=== PATIENT | female | born 1945 | race Caucasian/White ===

== ENCOUNTER 2017-05-02 09:10 | Inpatient (IN) ==
[2017-05-02] MEDS ORDERED: IPRATROPIUM/ALBUTEROL 3 ML AMPUL.NEB NEB ONE ×2 (09:32)
[2017-05-02] MEDS ORDERED: LACTATED RINGERS 1,000 ML IV ONE (09:32)
[2017-05-02] MEDS ORDERED: ONDANSETRON 4 MG/2 ML VIAL IV ONE (09:32)
--- NOTE | 2017-05-02 09:34 | Emergency Department Note ---
General Adult HPI - General Chief complaint: Extremity Injury, Lower Stated complaint: right hip pain Time Seen by Provider: 05/02/17 09:22 Source: patient Mode of arrival: ambulatory Limitations: no limitations - History of Present Illness HPI Narrative: This patient presents with 2 problems. She has had flulike symptoms for the last several days since Sunday but also has symptoms of right-sided sciatica. Her O2 saturation was a little bit low in the 80s and she has been coughing and wheezing some. She has no history of COPD or asthma. She has had some nausea and vomiting today. In general feels poorly and achy like she has the flu. - Related Data Home Medications Medication Instructions Recorded Confirmed HYDROcodone/ACETAMINOPHEN 1 each PO QIDP 08/02/16 05/02/17 [Hydrocodon-Acetaminophn 10-325] aspirin 81 mg chewable tablet 81 mg PO QDAY 11/09/16 05/02/17 atorvastatin 80 mg tablet 80 mg PO QDAY 11/09/16 05/02/17 hydroxyzine HCl 25 mg tablet 25 mg PO TID-QID PRN 11/09/16 05/02/17 pantoprazole 40 mg tablet,delayed 40 mg PO QDAY 11/09/16 05/02/17 release potassium chloride ER 10 mEq 10 meq PO QDAY 11/09/16 05/02/17 tablet,extended release torsemide 10 mg tablet 10 mg PO QDAY 11/09/16 05/02/17 zolpidem 10 mg tablet 5 - 10 mg PO HS 11/09/16 05/02/17 Albuterol Sulfate [Proair Hfa] 8.5 gm IH Q4HP PRN 05/02/17 05/02/17 Atenolol [Tenormin] 25 mg PO DAILY 05/02/17 05/02/17 Atorvastatin [Lipitor] 80 mg PO DAILY 05/02/17 05/02/17 Lisinopril [Zestril] 20 mg PO BID 05/02/17 05/02/17 traZODone HCL [Trazodone HCl] 50 - 100 mg PO HSP PRN 05/02/17 05/02/17 Allergies Allergy/AdvReac Type Severity Reaction Status Date / Time No Known Drug Intolerances Allergy Unknown Other Verified 05/02/17 09:16 Review of Systems All systems ED: reviewed and negative except as stated. Past Medical History - Past Medical History Medical history: Reports: GERD, hypertension, other (insomnia, chronic pain, GERD) - Social History smoking status: Current every day smoker Physical Exam Limitations: no limitations General appearance: alert Head: atraumatic Eye: Present: normal appearance ENT: normal exam Neck: Present: normal inspection Chest: Present: normal inspection Respiratory: Present: wheezes Cardiovascular: Present: regular rate, normal rhythm, normal heart sounds Abdominal: Present: soft. Absent: distention, tenderness Back: Present: tenderness, paraspinal tenderness, straight leg raise (R) Neurological: Present: alert Psychiatric: Present: normal affect, normal mood Skin: Present: warm, dry, intact Course Vital Signs Temperature 98.7 F 05/02/17 09:10 Pulse Rate 69 05/02/17 09:10 Respiratory Rate 18 05/02/17 09:10 Blood Pressure 192/72 05/02/17 09:10 Pulse Oximetry (%) 88 L 05/02/17 09:10 Temperature 98.7 F 05/02/17 09:10 Pulse Rate 62 05/02/17 11:01 Respiratory Rate 12 05/02/17 11:01 Blood Pressure 179/60 05/02/17 11:01 Pulse Oximetry (%) 97 05/02/17 11:01 Medical Decision Making - [facility] Narrative Medical decision making narrative: Patient's chest x-ray shows a peribronchiolar infiltrate and urine dip was quite positive for infection. Her O2 saturations are in the 80s off oxygen. We will go ahead and admit her to the hospital. - Lab Data Lab results reviewed: Yes I reviewed the patient's lab results. Result diagrams: 05/02/17 09:51 05/02/17 09:50 Lab Results 05/02/17 05/02/17 Range/Units 09:50 09:51 WBC 11.0 (4.5-11.0) K/mcL RBC 4.50 (4.00-5.20) M/mcL Hgb 15.4 H (12.0-15.0) g/dL Hct 45.8 (36.0-48.0) % MCV 101.8 H (80.0-100.0) fL MCH 34.1 H (26.0-34.0) pg MCHC 33.5 (31.0-36.0) g/dL RDW 12.8 (11.5-14.5) % Plt Count 200 (140-440) K/mcL MPV 7.6 (7.4-10.4) fL Gran % 72.6 (38.0-78.0) % Lymph % (Auto) 17.5 (15.5-49.0) % [place] % (Auto) 8.4 (1.0-12.0) % Eos % (Auto) 1.3 (0.0-7.0) % Baso % (Auto) 0.2 (0.0-2.0) % Gran # 8.0 (1.8-8.0) K/mcL Lymph # (Auto) 1.9 (1.5-4.8) K/mcL [place] # (Auto) 0.9 (0.1-0.9) K/mcL Eos # (Auto) 0.1 (0.0-0.7) K/mcL Baso # (Auto) 0 (0.0-0.3) K/mcL Sodium 141 (133-145) mmol/L Potassium 3.7 (3.3-5.1) mmol/L Chloride 100 (96-108) mmol/L Carbon Dioxide 27 (22-30) mmol/L Anion Gap 14.0 (8-16) BUN 11 (8-23) mg/dl Creatinine 0.7 (0.6-1.1) mg/dl GFR Calculation 87 Glucose 118 H (70-105) mg/dL Calcium 9.4 (8.6-10.4) mg/dl Total Bilirubin 0.6 (0.0-1.0) mg/dL AST 17 (0-37) U/l ALT 19 (0-40) U/l Alkaline Phosphatase 58 (39-117) U/L Total Protein 7.4 (5.9-8.4) gm/dL Albumin 3.9 (3.2-5.2) gm/dL Globulin 3.5 (2.2-3.7) gm/dL Albumin/Globulin Ratio 1.1 (1.0-2.3) - Radiology Data Radiology results reviewed: Yes I reviewed the patient's radiology results. Disposition Pt seen by MEDIA SALES REPRESENTATIVE/PA only: No Clinical Impression: Community acquired pneumonia, Lumbar radiculopathy, Urinary tract infection Disposition: Xfer As Inpt ([facility]) Condition: Good Referrals: Doron Shell MD [Primary Care Provider] - Time of Disposition: 11:23
[2017-05-02] MEDS ORDERED: METHOCARBAMOL 1,000 MG/10 ML VIAL IV ONE (10:03)
--- NOTE | 2017-05-02 10:11 | XRay Report ---
CLINICAL INFORMATION: Cough COMPARISON: 03/22/2015 FINDINGS: Heart size, mediastinum and pulmonary vessels are normal. Probable segmental subsegmental bronchiectasis in the posterior and medial basilar segments of the right lower lobe appreciated. There may be a small peribronchial vascular infiltrate developing. Remaining lungs are clear. No effusions. Bones and soft tissues are normal IMPRESSION: Mild tubular bronchiectasis in the medial posterior basilar segment of the right lower lobe with associated peribronchovascular infiltrate. Interpreted and Authenticated by: Dain Alvarez 05/02/17
[2017-05-02] MEDS: HYDROmorphone 2 MG/ML VIAL IV PRN ×2 (10:22→11:27)
[2017-05-02 10:26] LABS: Basophils # (Auto) 0 K/mcL (0.0-0.3); Basophils % (Auto) 0.2 % (0.0-2.0); Eosinophils # (Auto) 0.1 K/mcL (0.0-0.7); Eosinophils % (Auto) 1.3 % (0.0-7.0); Granulocytes % (Auto) 72.6 % (38.0-78.0); Lymphocytes # (Auto) 1.9 K/mcL (1.5-4.8); Lymphocytes % (Auto) 17.5 % (15.5-49.0); Mean Cell Volume 101.8 fL (80.0-100.0); Mean Corpuscular HGB Conc 33.5 g/dL (31.0-36.0); Mean Corpuscular Hemoglobin 34.1 pg (26.0-34.0); Monocytes # (Auto) 0.9 K/mcL (0.1-0.9); Monocytes % (Auto) 8.4 % (1.0-12.0); Platelet Count 200 K/mcL (140-440); Red Cell Distribution Width 12.8 % (11.5-14.5)
[2017-05-02 10:41] LABS: ALT/SGPT 19 U/l (0-40); Albumin 3.9 gm/dL (3.2-5.2); Albumin/Globulin Ratio 1.1 (1.0-2.3); Alkaline Phosphatase 58 U/L (39-117); Blood Urea Nitrogen 11 mg/dl (8-23)
[2017-05-02] MEDS ORDERED: LEVOFLOXACIN 750 MG/150 ML BAG IV ONE (10:51)
[2017-05-02 11:23] LABS: Appearance,Urine CLOUDY; Bilirubin,Urine NEG (NEG); Color,Urine PALE YELLOW; Glucose,Urine (UA) NORM (NEG); Leukocyte Esterase,Urine 2+ /uL (NEG); Protein,Urine 30 mg/dL (NEG); Specific Gravity,Urine 1.007 (1.000-1.035); Urine Blood 50 ery/mcL (<5); Urobilinogen,Urine NORM (NEG)
[2017-05-02 11:28] LABS: Bacteria,Urine 0 /hpf (0); Mucus,Urine FEW /hpf (0); Urine Amorphous Crystals MOD /hpf (0); Urine RBC 3 /hpf (0-1); Urine Renal Epithelial Cells < 1 /hpf (0-2); Urine Squamous Epithelial Cell < 1 /hpf (0-4); Urine WBC 143 /hpf (0-4)
[2017-05-02] MEDS ORDERED: NALOXONE HCL 0.4 MG/ML VIAL IV PRN ×2 (11:48→13:12)
[2017-05-02] MEDS ORDERED: ONDANSETRON 4 MG/2 ML VIAL IV PRN ×2 (11:48→13:12)
[2017-05-02] MEDS ORDERED: MAGNESIUM HYDROXIDE 30 ML ORAL.SUSP PO PRN ×2 (11:48→13:12)
[2017-05-02] MEDS ORDERED: ACETAMINOPHEN 325 MG TABLET PO PRN (11:48)
[2017-05-02] MEDS ORDERED: oxyCODONE HCL 5 MG TABLET PO PRN (11:48)
[2017-05-02] MEDS ORDERED: HYDROmorphone 2 MG/ML VIAL IV PRN ×2 (11:48→13:12)
[2017-05-02] MEDS ORDERED: cefTRIAXone 1 GM in DEXTROSE 5% IN WATER 50 ML IV SCH (12:00)
[2017-05-02] MEDS ORDERED: 0.9 % SODIUM CHLORIDE 1,000 ML IV SCH ×2 (12:00→13:12)
--- NOTE | 2017-05-02 12:23 | Internal Med History&Physical ---
Medical - H&P: HPI Patient information: Note initiated : 05/02/17 at 12:17 pm Service Date, if different from initiated Date: [] Patient: Baylee Crowell a 71 y/o F admitted on for Rt Hip Pain. Chief Complaint: [] History of present illness: Ms. Crowell is a 71 year old Female with h/o sciatic back pain, presens to the ER today with complaints of pain in the back radiating down the right side x 1 day The patient has chr sciatic pain, and this pain exacerbates intermittently. This time she had pain starting yesterday, severe, sharp, radiating down the right side up to mid thigh, the pt waited it out yesterday, with the hope of seeing her chiropractor today, but since the pain was unbearable she came to the ER. Pain relieved by pain meds, worse with activity. She had recently got a flu shot and has been feeling weak tired and fatigued over the last 4-5 days, she has cough, and had some greenish sputum today, she has had some nausea over the weekend, some dry heaving today. In the ER the patient was noted to be hypoxic on presentation, wheezing bilaterally, her Chest x ray was interpreted as possible pna, and she had abnormal UA, She was admitted to the hospital for further management. All systems: reviewed and no additional remarkable complaints except as stated ( as per HPI) Medical - H&P: PMH Medical history: Medical History Lumbar radiculopathy (Acute) cad s/p stent htn hld Surgical history: h/o appendectomy, tonsillectomy, hystrectomy Family history: reviewed and not pertinent Social history: smoker for long time, 1 pack a day social occasional etoh Medical - H&P: Meds Home Medications Medication Instructions Recorded Confirmed Type HYDROcodone/ACETAMINOPHEN 1 each PO QIDP 08/02/16 05/02/17 History [Hydrocodon-Acetaminophn 10-325] aspirin 81 mg chewable tablet 81 mg PO QDAY 11/09/16 05/02/17 History atorvastatin 80 mg tablet 80 mg PO QDAY 11/09/16 05/02/17 History hydroxyzine HCl 25 mg tablet 25 mg PO TID-QID PRN 11/09/16 05/02/17 History pantoprazole 40 mg tablet,delayed 40 mg PO QDAY 11/09/16 05/02/17 History release potassium chloride ER 10 mEq 10 meq PO QDAY 11/09/16 05/02/17 History tablet,extended release torsemide 10 mg tablet 10 mg PO QDAY 11/09/16 05/02/17 History zolpidem 10 mg tablet 5 - 10 mg PO HS 11/09/16 05/02/17 History Albuterol Sulfate [Proair Hfa] 8.5 gm IH Q4HP PRN 05/02/17 05/02/17 History Atenolol [Tenormin] 25 mg PO DAILY 05/02/17 05/02/17 History Atorvastatin [Lipitor] 80 mg PO DAILY 05/02/17 05/02/17 History Lisinopril [Zestril] 20 mg PO BID 05/02/17 05/02/17 History traZODone HCL [Trazodone HCl] 50 - 100 mg PO HSP PRN 05/02/17 05/02/17 History Allergies Allergy/AdvReac Type Severity Reaction Status Date / Time No Known Drug Intolerances Allergy Unknown Other Verified 05/02/17 09:16 Medical - H&P: Exam - Constitutional Vitals: Temp Pulse Resp BP Pulse Ox 98.7 F 60 15 170/58 95 05/02/17 09:10 05/02/17 11:31 05/02/17 11:31 05/02/17 11:31 05/02/17 11:31 Exam: GENERAL: The patient is a well-developed, well-nourished in no apparent distress. Is alert and oriented x3. VITAL SIGNS: Reviewed and as noted elsewhere. HEENT: Head is normocephalic and atraumatic. Extraocular muscles are intact. Pupils are equal, round, and reactive to light. Nares appeared normal. Mouth appears any without lesions. Mucous membranes are moist. NECK: Normal to inspection, Supple, No lymphadenopathy or thyromegaly. LUNGS: Air entry equal on both sides, devorah wheezing present, no crackles or rhonchi noted. No accessory muscles of respiration HEART: Regular rate and rhythm normal, S1 and S2 heard, no Gallop, S3 or Rub Noted, No Gross murmur heard. ABDOMEN: Soft, nontender, and nondistended. Positive bowel sounds. No hepatosplenomegaly was noted. EXTREMITIES: No cyanosis, clubbing, rash, lesions or edema. NEUROLOGIC: Cranial nerves II through XII are grossly intact. Motor and Sensory System Grossly Intact PSYCHIATRIC: Normal affect, Normal Mood. Appropriate Behavior. SKIN: No ulceration or wounds noted, No jaundice, No rash noted. Medical - H&P: Reslt - Labs CBC & Chem 7: 05/02/17 09:51 05/02/17 09:50 Labs: Short CBC 05/02/17 Range/Units 09:51 WBC 11.0 (4.5-11.0) K/mcL Hgb 15.4 H (12.0-15.0) g/dL Hct 45.8 (36.0-48.0) % Plt Count 200 (140-440) K/mcL BMP 05/02/17 09:50 Sodium 141 Potassium 3.7 Chloride 100 Carbon Dioxide 27 BUN 11 Creatinine 0.7 Glucose 118 H Calcium 9.4 Liver Function 05/02/17 Range/Units 09:50 Total Bilirubin 0.6 (0.0-1.0) mg/dL AST 17 (0-37) U/l ALT 19 (0-40) U/l Alkaline Phosphatase 58 (39-117) U/L Albumin 3.9 (3.2-5.2) gm/dL Urine 05/02/17 Range/Units 10:59 Urine Color Pale yellow Urine Appearance Cloudy Urine pH 7.0 (5.0-9.0) Ur Specific [place] 1.007 (1.000-1.035) Urine Protein 30 A (NEG) mg/dL Urine Glucose (UA) Norm (NEG) mg/dL Medical - H&P: A/P - Narrative A/P Narrative: A/P COPD Exacerbation: pt likely also has copd, has h/o need for albuterol during URI, not had a formal PFT, PO steroids, and duonebs for now. Acute hypoxic resp failuire: due ot copd and pna, treat underlying condition, oxygen supplementation for now PNA: community acquired, flu neg, IV rocehpin and zithromax for now, follow cultures UTI: clinically asymptomatic, await cultures, IV rocephin should cover HTN: BP stable ,resume home meds Back pain: chr issue, steroids, pain management, robaxain and PT should help DVT hep sq Diet cardiac DNR code status
[2017-05-02] MEDS ORDERED: cefTRIAXone 1 GM VIAL IV SCH (13:00)
[2017-05-02] MEDS ORDERED: hydrOXYzine 25 MG TABLET PO PRN (13:12)
[2017-05-02] MEDS ORDERED: AZITHROMYCIN 500 MG in DEXTROSE 5% IN WATER 250 ML IV ONE ×2 (13:30)
[2017-05-02] MEDS: 0.9 % SODIUM CHLORIDE 10 ML SYRINGE IV SCH ×2 (13:32→20:52)
[2017-05-02] MEDS: predniSONE 20 MG TABLET PO SCH (13:36)
[2017-05-02] MEDS ORDERED: 0.9 % SODIUM CHLORIDE 10 ML SYRINGE IV SCH (14:00)
[2017-05-02] MEDS: cefTRIAXone 1 GM VIAL IV SCH (14:36)
[2017-05-02] MEDS: IPRATROPIUM/ALBUTEROL 3 ML AMPUL.NEB NEB SCH ×3 (14:53→23:26)
[2017-05-02] MEDS ORDERED: IPRATROPIUM/ALBUTEROL 3 ML AMPUL.NEB NEB SCH (15:00)
[2017-05-02] MEDS: METHOCARBAMOL 750 MG TABLET PO PRN (18:50)
[2017-05-02] MEDS: oxyCODONE HCL 5 MG TABLET PO PRN (18:50)
[2017-05-02] MEDS: HEPARIN 5,000 UNIT/ML VIAL SQ SCH (20:51)
[2017-05-02] MEDS: FAMOTIDINE 20 MG TABLET PO SCH (20:52)
[2017-05-02] MEDS: LISINOPRIL 20 MG TABLET PO SCH (20:52)
[2017-05-02] MEDS ORDERED: HEPARIN 5,000 UNIT/ML VIAL SQ SCH (21:00)
[2017-05-02] MEDS: amLODIPine 5 MG TABLET PO SCH (21:26)
[2017-05-03] MEDS: oxyCODONE HCL 5 MG TABLET PO PRN ×3 (00:15→21:00)
[2017-05-03] MEDS: METHOCARBAMOL 750 MG TABLET PO PRN ×2 (01:54→21:01)
[2017-05-03] MEDS: IPRATROPIUM/ALBUTEROL 3 ML AMPUL.NEB NEB SCH ×6 (03:35→22:38)
[2017-05-03] MEDS: ACETAMINOPHEN 325 MG TABLET PO PRN (03:41)
[2017-05-03 05:42] LABS: Basophils # (Auto) 0 K/mcL (0.0-0.3); Basophils % (Auto) 0.3 % (0.0-2.0); Eosinophils # (Auto) 0.3 K/mcL (0.0-0.7); Eosinophils % (Auto) 2.7 % (0.0-7.0); Granulocytes % (Auto) 74.8 % (38.0-78.0); Lymphocytes # (Auto) 1.8 K/mcL (1.5-4.8); Lymphocytes % (Auto) 16.2 % (15.5-49.0); Mean Cell Volume 101.6 fL (80.0-100.0); Mean Corpuscular HGB Conc 33.8 g/dL (31.0-36.0); Mean Corpuscular Hemoglobin 34.3 pg (26.0-34.0); Monocytes # (Auto) 0.7 K/mcL (0.1-0.9); Platelet Count 179 K/mcL (140-440); RBC 3.88 M/mcL (4.00-5.20); Red Cell Distribution Width 12.5 % (11.5-14.5)
[2017-05-03] MEDS: 0.9 % SODIUM CHLORIDE 10 ML SYRINGE IV SCH ×3 (05:42→23:04)
[2017-05-03 06:27] LABS: ALT/SGPT 16 U/l (0-40); Albumin 3.8 gm/dL (3.2-5.2); Albumin/Globulin Ratio 1.3 (1.0-2.3); Alkaline Phosphatase 49 U/L (39-117); Bilirubin,Direct < 0.2 mg/dL (0.0-0.3); Blood Urea Nitrogen 14 mg/dl (8-23); Gamma Glutamyl Transpeptidase 30 U/L (5-36); Uric Acid 4.6 mg/dL (2.5-8.0)
[2017-05-03] MEDS: predniSONE 20 MG TABLET PO SCH (07:35)
[2017-05-03] MEDS: PANTOPRAZOLE 40 MG TABLET PO SCH (07:36)
[2017-05-03] MEDS: POTASSIUM CHLORIDE 10 MEQ TABLET PO SCH (07:36)
[2017-05-03] MEDS: cefTRIAXone 1 GM VIAL IV SCH (08:48)
[2017-05-03] MEDS: TORSEMIDE 10 MG TABLET PO SCH (08:49)
[2017-05-03] MEDS: LISINOPRIL 20 MG TABLET PO SCH ×2 (08:49→20:37)
[2017-05-03] MEDS: ATENOLOL 50 MG TABLET PO SCH (08:49)
[2017-05-03] MEDS: ASPIRIN 81 MG TAB.CHEW PO SCH (08:49)
[2017-05-03] MEDS: ATORVASTATIN 20 MG TABLET PO SCH (08:49)
[2017-05-03] MEDS: FAMOTIDINE 20 MG TABLET PO SCH ×2 (08:50→20:37)
[2017-05-03] MEDS: AZITHROMYCIN 250 MG in DEXTROSE 5% IN WATER 250 ML IV SCH (08:50)
[2017-05-03] MEDS: HEPARIN 5,000 UNIT/ML VIAL SQ SCH ×2 (08:51→20:40)
[2017-05-03] MEDS ORDERED: AZITHROMYCIN 250 MG in DEXTROSE 5% IN WATER 250 ML IV SCH (09:00)
[2017-05-03] MEDS ORDERED: PNEUMOCOCCAL 23-VAL P-SAC VAC 0.5 ML VIAL IM ONE (10:00)
--- NOTE | 2017-05-03 11:31 | Internal Med Progress Note ---
Medical - PN: Subj Patient information: Note initiated : 05/03/17 at 11:28 am Service Date, if different from initiated Date: [] Patient: Baylee Crowell 71 y/o F admitted on 05/02/17 for Rt Hip Pain/ Pnemonia. Chief Complaint: [] Interval history: Ms. Crowell is a 71 year old Female with h/o sciatic back pain, presens to the ER today with complaints of pain in the back radiating down the right side x 1 day The patient has chr sciatic pain, and this pain exacerbates intermittently. This time she had pain starting yesterday, severe, sharp, radiating down the right side up to mid thigh, the pt waited it out yesterday, with the hope of seeing her chiropractor today, but since the pain was unbearable she came to the ER. Pain relieved by pain meds, worse with activity. She had recently got a flu shot and has been feeling weak tired and fatigued over the last 4-5 days, she has cough, and had some greenish sputum today, she has had some nausea over the weekend, some dry heaving today. In the ER the patient was noted to be hypoxic on presentation, wheezing bilaterally, her Chest x ray was interpreted as possible pna, and she had abnormal UA, She was admitted to the hospital for further management. May 03 Patient seen examined, no acute overnight issues, pt back pain is better, she notes did not sleep well her bp was elevated overnight, amlodipine resumed sob somewhat better no other complaints still on oxygen. educated on need for outpatient PFT once stable Pertinent ROS: Denies headache, dizziness Denies chest pain, palpitations Denies cough or shortness of breath Denies abdominal pain, nausea or vomiting. - Constitutional Vitals: Vital Signs Temp Pulse Resp BP Pulse Ox 97.5 F 73 20 173/59 98 05/03/17 07:12 05/03/17 11:18 05/03/17 11:18 05/03/17 07:12 05/03/17 11:18 Period Temp Pulse Resp BP Sys/Fisher Pulse Ox Last 24 Hr 97.5 F-98.2 F 60-92 15-20 170-185/58-76 91-98 Intake and Output 05/02/17 05/03/17 05/03/17 21:59 05:59 13:59 Intake Total 1080 / 1080 1500 / 1500 480 / 480 Balance 1080 / 1080 1500 / 1500 480 / 480 Weight 173 lb Intake & Output: Intake & Output 05/02/17 05/03/17 05/03/17 21:59 05:59 13:59 Intake Total 1080 / 1080 1500 / 1500 480 / 480 Balance 1080 / 1080 1500 / 1500 480 / 480 Weight 173 lb Intake: IV 1000 / 1000 Oral 1080 / 1080 500 / 500 480 / 480 Other: Meal Dinner Breakfast Percent of Meal Consumed 100% 100% Feeding Ability Independent # Voids 1 4 2 Exam: Constitutional; Afebrile, cooperative, alert, not in distress. Eyes- No icterus, , No periorbital swelling Ears- Ext ear normal, hearing normal to conversation. Neck- Midline trachea, supple Respiratory system: Air Entry equal on both sides but decreased, devorah proloned exp phase, mild exp wheeze present. CVS- Rate rhythm regular, S1,S2 heard, no gallop, no rub. Abdomen- Soft nontender abdomen, no organomegaly, no tenderness, no guarding or rigidity, LABEL REWINDER- AOOx3, moving all extremities, no gross focal deficit noted. Medical - PN: Obj Da - Labs CBC & Chem 7: 05/03/17 04:55 05/03/17 04:55 Labs: Abnormal Lab Results 05/03/17 05/03/17 05/02/17 04:55 04:55 10:59 RBC 3.88 L Hgb MCV 101.6 H MCH 34.3 H Gran # 8.2 H Glucose 130 H Urine Protein 30 A Urine Occult Blood 50 A Urine Nitrate Pos A Urine RBC 3 H Urine WBC 143 H Amorphous Crystals Mod A 05/02/17 05/02/17 09:51 09:50 RBC Hgb 15.4 H MCV 101.8 H MCH 34.1 H Gran # Glucose 118 H Urine Protein Urine Occult Blood Urine Nitrate Urine RBC Urine WBC Amorphous Crystals Meds: Medications Acetaminophen (Tylenol) 650 mg PO Q6HP PRN PRN Reason: PAIN/FEVER > 101 Last Admin: 05/03/17 03:41 Dose: 650 mg Albuterol/Ipratropium (Duoneb) 3 ml NEB Q4HRT [facility] Last Admin: 05/03/17 11:02 Dose: 3 ml Amlodipine Besylate (Norvasc) 5 mg PO HS [facility] Last Admin: 05/02/17 21:26 Dose: 5 mg Aspirin (Aspirin) 81 mg PO QDAY [facility] Last Admin: 05/03/17 08:49 Dose: 81 mg Atenolol (Tenormin) 25 mg PO DAILY [facility] Last Admin: 05/03/17 08:49 Dose: 25 mg Atorvastatin Calcium (Lipitor) 80 mg PO DAILY [facility] Last Admin: 05/03/17 08:49 Dose: 80 mg Ceftriaxone Sodium (Rocephin) 1 gm IV DAILY [facility] Last Admin: 05/03/17 08:48 Dose: 1 gm Famotidine (Pepcid) 20 mg PO BID [facility] Last Admin: 05/03/17 08:50 Dose: 20 mg Heparin Sodium (Porcine) (Heparin) 5,000 unit SQ Q12 [facility] Last Admin: 05/03/17 08:51 Dose: Not Given Hydromorphone HCl (Dilaudid) 0.5 mg IV Q2HP PRN PRN Reason: PAIN LEVEL > 6 Last Admin: 05/02/17 13:30 Dose: 0.5 mg Hydroxyzine HCl (Atarax) 25 mg PO TID-QID PRN PRN Reason: Allergic Symptoms Azithromycin 250 mg/ Dextrose 250 mls @ 250 mls/hr IV DAILY [facility] Stop: 05/06/17 09:59 Last Admin: 05/03/17 08:50 Dose: 250 mls/hr Lisinopril (Zestril) 20 mg PO BID [facility] Last Admin: 05/03/17 08:49 Dose: 20 mg Magnesium Hydroxide (Milk Of Magnesia) 30 ml PO DAILYP PRN PRN Reason: Constipation Methocarbamol (Robaxin) 750 mg PO Q6HP PRN PRN Reason: Muscle Spasm Last Admin: 05/03/17 01:54 Dose: 750 mg Naloxone HCl (Narcan) 0.1 mg IV Q2MIN PRN PRN Reason: Opiate Reversal Ondansetron HCl (Zofran) 4 mg IV Q6HP PRN PRN Reason: Nausea And Vomiting Oxycodone HCl (Roxicodone) 5 mg PO Q4HP PRN PRN Reason: PAIN LEVEL 3-6 Last Admin: 05/03/17 03:41 Dose: 5 mg Pantoprazole Sodium (Protonix) 40 mg PO ACB [facility] Last Admin: 05/03/17 07:36 Dose: 40 mg Potassium [facility] (Kdur) [facility] Last Admin: 05/03/17 07:36 Dose: 10 meq Prednisone (Prednisone) 40 mg PO [facility] Last Admin: 05/03/17 07:35 Dose: 40 mg Sodium Chloride (Saline Flush) 10 ml IV Q8 [facility] Last Admin: 05/03/17 05:42 Dose: 10 ml Torsemide (Demadex) 10 mg PO QDAY [facility] Last Admin: 05/03/17 08:49 Dose: 10 mg Trazodone HCl (Desyrel) 100 mg PO HSP PRN PRN Reason: Insomnia Medical - PN: A/P - Time Spent With Patient Total time spent is greater than 50% in coordination of care (as documented) at patient's floor/unit and/or counseling patient: - Narrative A/P Narrative: A/P COPD Exacerbation: PO steroids, and duonebs for now, air entry today is better than yesterday, but still wheezing. Acute hypoxic resp failuire: due ot copd and pna, treat underlying condition, nasal canula oxygen to keep osat > 90 PNA: community acquired, flu neg, IV rocehpin and zithromax for now, follow cultures, neg growth so far UTI: clinically asymptomatic, , IV rocephin should cover, gram neg bacillus on culture, await sensitivities and isolation. HTN: BP stable ,resume home meds Back pain: chr issue, steroids, pain management, robaxain improved today, PT today. DVT hep sq Diet cardiac Full code Medical - PN: Qual - VTE Deep Vein Thrombosis/Pulmonary Embolism Present on Admission: No
[2017-05-03] MEDS ORDERED: BENZOCAINE/MENTHOL 1 LOZENGE PO ONE (18:14)
[2017-05-03] MEDS: amLODIPine 5 MG TABLET PO SCH (20:38)
[2017-05-03] MEDS: BENZOCAINE/MENTHOL 1 LOZENGE PO PRN (22:30)
[2017-05-03] MEDS: traZODone HCL 50 MG TABLET PO PRN (23:03)
[2017-05-04] MEDS: IPRATROPIUM/ALBUTEROL 3 ML AMPUL.NEB NEB SCH ×6 (02:42→22:32)
[2017-05-04 06:03] LABS: Basophils # (Auto) 0 K/mcL (0.0-0.3); Basophils % (Auto) 0.3 % (0.0-2.0); Eosinophils # (Auto) 0.2 K/mcL (0.0-0.7); Eosinophils % (Auto) 1.6 % (0.0-7.0); Lymphocytes # (Auto) 2.3 K/mcL (1.5-4.8); Lymphocytes % (Auto) 24.3 % (15.5-49.0); Mean Cell Volume 100.8 fL (80.0-100.0); Mean Corpuscular HGB Conc 33.7 g/dL (31.0-36.0); Mean Corpuscular Hemoglobin 33.9 pg (26.0-34.0); Monocytes # (Auto) 0.8 K/mcL (0.1-0.9); Monocytes % (Auto) 8.8 % (1.0-12.0); Platelet Count 185 K/mcL (140-440); RBC 4.02 M/mcL (4.00-5.20); Red Cell Distribution Width 12.4 % (11.5-14.5)
[2017-05-04 06:17] LABS: ALT/SGPT 18 U/l (0-40); Albumin 3.7 gm/dL (3.2-5.2); Albumin/Globulin Ratio 1.1 (1.0-2.3); Alkaline Phosphatase 51 U/L (39-117); Bilirubin,Direct < 0.2 mg/dL (0.0-0.3); Blood Urea Nitrogen 16 mg/dl (8-23); Gamma Glutamyl Transpeptidase 31 U/L (5-36); Uric Acid 5.7 mg/dL (2.5-8.0)
[2017-05-04] MEDS: 0.9 % SODIUM CHLORIDE 10 ML SYRINGE IV SCH ×3 (06:39→21:26)
[2017-05-04] MEDS: POTASSIUM CHLORIDE 10 MEQ TABLET PO SCH (07:46)
[2017-05-04] MEDS: predniSONE 20 MG TABLET PO SCH (07:47)
[2017-05-04] MEDS: PANTOPRAZOLE 40 MG TABLET PO SCH (07:47)
[2017-05-04] MEDS: oxyCODONE HCL 5 MG TABLET PO PRN ×3 (08:45→19:07)
[2017-05-04] MEDS: ASPIRIN 81 MG TAB.CHEW PO SCH (08:47)
[2017-05-04] MEDS: LISINOPRIL 20 MG TABLET PO SCH ×2 (08:47→21:26)
[2017-05-04] MEDS: FAMOTIDINE 20 MG TABLET PO SCH ×2 (08:47→21:26)
[2017-05-04] MEDS: ATORVASTATIN 20 MG TABLET PO SCH (08:47)
[2017-05-04] MEDS: TORSEMIDE 10 MG TABLET PO SCH (08:47)
[2017-05-04] MEDS: ATENOLOL 50 MG TABLET PO SCH (08:48)
[2017-05-04] MEDS: AZITHROMYCIN 250 MG in DEXTROSE 5% IN WATER 250 ML IV SCH (09:13)
[2017-05-04] MEDS: cefTRIAXone 1 GM VIAL IV SCH (10:02)
[2017-05-04] MEDS: HEPARIN 5,000 UNIT/ML VIAL SQ SCH ×2 (10:22→21:25)
--- NOTE | 2017-05-04 11:40 | Internal Med Progress Note ---
Medical - PN: Subj Patient information: Note initiated : 05/04/17 at 11:37 am Service Date, if different from initiated Date: [] Patient: Baylee Crowell 71 y/o F admitted on 05/02/17 for Rt Hip Pain/ Pnemonia. Chief Complaint: [] Interval history: Ms. Crowell is a 71 year old Female with h/o sciatic back pain, presens to the ER today with complaints of pain in the back radiating down the right side x 1 day The patient has chr sciatic pain, and this pain exacerbates intermittently. This time she had pain starting yesterday, severe, sharp, radiating down the right side up to mid thigh, the pt waited it out yesterday, with the hope of seeing her chiropractor today, but since the pain was unbearable she came to the ER. Pain relieved by pain meds, worse with activity. She had recently got a flu shot and has been feeling weak tired and fatigued over the last 4-5 days, she has cough, and had some greenish sputum today, she has had some nausea over the weekend, some dry heaving today. In the ER the patient was noted to be hypoxic on presentation, wheezing bilaterally, her Chest x ray was interpreted as possible pna, and she had abnormal UA, She was admitted to the hospital for further management. Fe 8 Patient seen examined, no acute overnight issues, pt back pain is better, she notes did not sleep well her bp was elevated overnight, amlodipine resumed sob somewhat better no other complaints still on oxygen. educated on need for outpatient PFT once stable Apr 9 patient seen examined, no acute overnight issues back pain better, still needs oxygen to maintain osat > 90 wheezing much improved, no other complaints reported Pertinent ROS: Denies headache, dizziness Denies chest pain, palpitations cough or shortness of breath, Improving Denies abdominal pain, nausea or vomiting. - Constitutional Vitals: Vital Signs Temp Pulse Resp BP Pulse Ox 97.5 F 69 19 153/63 98 05/04/17 08:00 05/04/17 11:02 05/04/17 11:02 05/04/17 03:24 05/04/17 11:01 Period Temp Pulse Resp BP Sys/Fisher Pulse Ox Last 24 Hr 97.4 F-98.6 F 64-99 16-22 153-178/59-71 92-98 Intake and Output 05/03/17 05/04/17 05/04/17 21:59 05:59 13:59 Intake Total 600 / 600 800 / 800 Output Total 500 / 500 Balance 600 / 600 300 / 300 Weight 166 lb Intake & Output: Intake & Output 05/03/17 05/04/17 05/04/17 21:59 05:59 13:59 Intake Total 600 / 600 800 / 800 Output Total 500 / 500 Balance 600 / 600 300 / 300 Weight 166 lb Intake: Oral 600 / 600 800 / 800 Output: Void Amount 500 / 500 Other: Meal Dinner Dinner Percent of Meal Consumed 75% 100% Feeding Ability Independent # Voids 2 Exam: Constitutional; Afebrile, cooperative, alert, not in distress. Eyes- No icterus, , No periorbital swelling Ears- Ext ear normal, hearing normal to conversation. Neck- Midline trachea, supple Respiratory system: Air Entry equal on both sides, minimal wheeze, better air entry CVS- Rate rhythm regular, S1,S2 heard, no gallop, no rub. Abdomen- Soft nontender abdomen, no organomegaly, no tenderness, no guarding or rigidity, GIS PROFESSOR- AOOx3, moving all extremities, no gross focal deficit noted. Medical - PN: Obj Da - Labs CBC & Chem 7: 05/04/17 04:30 05/04/17 04:30 Labs: Abnormal Lab Results 05/04/17 05/03/17 05/03/17 04:30 04:55 04:55 RBC 3.88 L Hgb MCV 100.8 H 101.6 H MCH 34.3 H Gran # 8.2 H Glucose 130 H Urine Protein Urine Occult Blood Urine Nitrate Urine RBC Urine WBC Amorphous Crystals 05/02/17 05/02/17 05/02/17 10:59 09:51 09:50 RBC Hgb 15.4 H MCV 101.8 H MCH 34.1 H Gran # Glucose 118 H Urine Protein 30 A Urine Occult Blood 50 A Urine Nitrate Pos A Urine RBC 3 H Urine WBC 143 H Amorphous Crystals Mod A Meds: Medications Acetaminophen (Tylenol) 650 mg PO Q6HP PRN PRN Reason: PAIN/FEVER > 101 Last Admin: 05/03/17 03:41 Dose: 650 mg Albuterol/Ipratropium (Duoneb) 3 ml NEB Q4HRT [facility] Last Admin: 05/04/17 11:00 Dose: 3 ml Amlodipine Besylate (Norvasc) 5 mg PO HS [facility] Last Admin: 05/03/17 20:38 Dose: 5 mg Aspirin (Aspirin) 81 mg PO QDAY [facility] Last Admin: 05/04/17 08:47 Dose: 81 mg Atenolol (Tenormin) 25 mg PO DAILY [facility] Last Admin: 05/04/17 08:48 Dose: 25 mg Atorvastatin Calcium (Lipitor) 80 mg PO DAILY [facility] Last Admin: 05/04/17 08:47 Dose: 80 mg Ceftriaxone Sodium (Rocephin) 1 gm IV DAILY [facility] Last Admin: 05/04/17 10:02 Dose: 1 gm Famotidine (Pepcid) 20 mg PO BID [facility] Last Admin: 05/04/17 08:47 Dose: 20 mg Heparin Sodium (Porcine) (Heparin) 5,000 unit SQ Q12 [facility] Last Admin: 05/04/17 10:22 Dose: 5,000 unit Hydromorphone HCl (Dilaudid) 0.5 mg IV Q2HP PRN PRN Reason: PAIN LEVEL > 6 Last Admin: 05/02/17 13:30 Dose: 0.5 mg Hydroxyzine HCl (Atarax) 25 mg PO TID-QID PRN PRN Reason: Allergic Symptoms Azithromycin 250 mg/ Dextrose 250 mls @ 250 mls/hr IV DAILY [facility] Stop: 05/06/17 09:59 Last Admin: 05/04/17 09:13 Dose: 250 mls/hr Lisinopril (Zestril) 20 mg PO BID [facility] Last Admin: 05/04/17 08:47 Dose: 20 mg Magnesium Hydroxide (Milk Of Magnesia) 30 ml PO DAILYP PRN PRN Reason: Constipation Methocarbamol (Robaxin) 750 mg PO Q6HP PRN PRN Reason: Muscle Spasm Last Admin: 05/03/17 21:01 Dose: 750 mg Naloxone HCl (Narcan) 0.1 mg IV Q2MIN PRN PRN Reason: Opiate Reversal Ondansetron HCl (Zofran) 4 mg IV Q6HP PRN PRN Reason: Nausea And Vomiting Oxycodone HCl (Roxicodone) 5 mg PO Q4HP PRN PRN Reason: PAIN LEVEL 3-6 Last Admin: 02/09/18 08:45 Dose: 5 mg Pantoprazole Sodium (Protonix) 40 mg PO ACB [facility] Last Admin: 05/04/17 07:47 Dose: 40 mg Potassium Chloride (Kdur) 10 meq PO [facility] Last Admin: 05/04/17 07:46 Dose: 10 meq Prednisone (Prednisone) 40 mg PO [facility] Last Admin: 05/04/17 07:47 Dose: 40 mg Sodium Chloride (Saline Flush) 10 ml IV Q8 [facility] Last Admin: 05/04/17 06:39 Dose: 10 ml Throat Lozenges (Cepacol) 1 lozenge PO PRN PRN PRN Reason: Sore Throat Last Admin: 05/03/17 22:30 Dose: 1 lozenge Torsemide (Demadex) 10 mg PO QDAY [facility] Last Admin: 05/04/17 08:47 Dose: 10 mg Trazodone HCl (Desyrel) 100 mg PO HSP PRN PRN Reason: Insomnia Last Admin: 05/03/17 23:03 Dose: 100 mg Medical - PN: A/P - Time Spent With Patient Total time spent is greater than 50% in coordination of care (as documented) at patient's floor/unit and/or counseling patient: - Narrative A/P Narrative: A/P COPD Exacerbation: PO steroids, and duonebs for now, air entry much better since admission, wheezing nearly resolved. Acute hypoxic resp failuire: due ot copd and pna, treat underlying condition, nasal canula oxygen to keep osat > 90, still needs oxygen. PNA: community acquired, flu neg, IV rocehpin and zithromax for now, follow cultures, blood cx neg, sputum cx is H influenzae, UTI: clinically asymptomatic, , IV rocephin should cover, gram neg bacillus on culture, await sensitivities and isolation. HTN: BP stable ,resume home meds Back pain: chr issue, steroids, pain management, robaxain continue to work with rehab. DVT hep sq Diet cardiac Full code Medical - PN: Qual - VTE Deep Vein Thrombosis/Pulmonary Embolism Present on Admission: No
[2017-05-04] MEDS: BENZOCAINE/MENTHOL 1 LOZENGE PO PRN (13:28)
[2017-05-04] MEDS: traZODone HCL 50 MG TABLET PO PRN (21:25)
[2017-05-04] MEDS: amLODIPine 5 MG TABLET PO SCH (21:26)
[2017-05-05] MEDS: BENZOCAINE/MENTHOL 1 LOZENGE PO PRN ×2 (02:54→06:51)
[2017-05-05] MEDS: IPRATROPIUM/ALBUTEROL 3 ML AMPUL.NEB NEB SCH ×3 (02:55→11:30)
[2017-05-05] MEDS: 0.9 % SODIUM CHLORIDE 10 ML SYRINGE IV SCH (04:46)
[2017-05-05] MEDS: oxyCODONE HCL 5 MG TABLET PO PRN (04:46)
[2017-05-05 05:16] LABS: Basophils # (Auto) 0 K/mcL (0.0-0.3); Basophils % (Auto) 0.1 % (0.0-2.0); Eosinophils # (Auto) 0.2 K/mcL (0.0-0.7); Eosinophils % (Auto) 2.1 % (0.0-7.0); Granulocytes % (Auto) 61.3 % (38.0-78.0); Lymphocytes # (Auto) 2.7 K/mcL (1.5-4.8); Lymphocytes % (Auto) 27.2 % (15.5-49.0); Mean Cell Volume 101.2 fL (80.0-100.0); Mean Corpuscular HGB Conc 33.8 g/dL (31.0-36.0); Mean Corpuscular Hemoglobin 34.2 pg (26.0-34.0); Monocytes # (Auto) 0.9 K/mcL (0.1-0.9); Monocytes % (Auto) 9.3 % (1.0-12.0); Platelet Count 221 K/mcL (140-440); RBC 3.91 M/mcL (4.00-5.20)
[2017-05-05 06:03] LABS: ALT/SGPT 24 U/l (0-40); Albumin 3.5 gm/dL (3.2-5.2); Albumin/Globulin Ratio 1.1 (1.0-2.3); Alkaline Phosphatase 52 U/L (39-117); Bilirubin,Direct < 0.2 mg/dL (0.0-0.3); Blood Urea Nitrogen 22 mg/dl (8-23); Gamma Glutamyl Transpeptidase 31 U/L (5-36); Uric Acid 6.6 mg/dL (2.5-8.0)
[2017-05-05] MEDS: POTASSIUM CHLORIDE 10 MEQ TABLET PO SCH (07:36)
[2017-05-05] MEDS: ACETAMINOPHEN 325 MG TABLET PO PRN (07:36)
[2017-05-05] MEDS: PANTOPRAZOLE 40 MG TABLET PO SCH (07:36)
[2017-05-05] MEDS: predniSONE 20 MG TABLET PO SCH (07:36)
[2017-05-05] MEDS: ASPIRIN 81 MG TAB.CHEW PO SCH (09:28)
[2017-05-05] MEDS: ATORVASTATIN 20 MG TABLET PO SCH (09:28)
[2017-05-05] MEDS: ATENOLOL 50 MG TABLET PO SCH (09:28)
[2017-05-05] MEDS: TORSEMIDE 10 MG TABLET PO SCH (09:29)
[2017-05-05] MEDS: LISINOPRIL 20 MG TABLET PO SCH (09:29)
[2017-05-05] MEDS: cefTRIAXone 1 GM VIAL IV SCH ×2 (09:29→10:51)
[2017-05-05] MEDS: AZITHROMYCIN 250 MG in DEXTROSE 5% IN WATER 250 ML IV SCH ×2 (10:31→10:52)
[2017-05-05] MEDS: HEPARIN 5,000 UNIT/ML VIAL SQ SCH (10:32)
[2017-05-05] MEDS: FAMOTIDINE 20 MG TABLET PO SCH (10:32)
--- NOTE | 2017-05-05 12:30 | Internal Med Progress Note ---
Medical - PN: Subj Patient information: Note initiated : 05/05/17 at 11:59 am Service Date, if different from initiated Date: [] Patient: Baylee Crowell 71 y/o F admitted on 05/02/17 for Rt Hip Pain/ Pnemonia. Chief Complaint: [] Interval history: Ms. Crowell is a 71 year old Female with h/o sciatic back pain, presented to the ER with complaints of pain in the back radiating down the right side x 1 day The patient has chr sciatic pain, and this pain exacerbates intermittently. This time she had pain started a day before admission, which was severe, sharp, radiating down the right side up to mid thigh, the pt waited it out with the hope of seeing her chiropractor, but since the pain was unbearable she came to the ER. She had recently got a flu shot and has been feeling weak tired and fatigued over the last 4-5 days, she has cough, and had some greenish sputum today, she has had some nausea over the weekend, some dry heaving on the day of admission. In the ER the patient was noted to be hypoxic on presentation, wheezing bilaterally, her Chest x ray was interpreted as possible pna, and she had abnormal UA, She was admitted to the hospital for further management. Back pain: Sciatica, usually responds to steroids and Physical therapy, patient was on steroids for copd, but PT was also invovled with her care, at the time of discharge the patient was able to ambulate well without any issues Pneumonia : Community-acquired pneumonia, treat with IV Rocephin and IV azithromycin. Patient responded to treatment very well, was gradually weaned off oxygen. Able to tolerate by mouth, or discharge. He'll be discharged on oral third generation cephalosporin and zithromycin. Blood cultures are negative , sputum cultures were positive for Haemophilus influenzae urinary tract infection-patient had UTI, urine culture were positive for Escherichia coli,resistant to penicillins, ampicillin, sensitive to cephalosporins. Patient will be discharged on oral cephalosporins, which should cover her urinary tract infection. Patient has no symptoms suggestive of UTI. The rest of the stay in the hospital was uneventful, patient at the time of discharge was saturating well without oxygen supplement. Is able to tolerate by mouth diet very well, is ambulating freely without any support. She is willing to go home. May 03 Patient seen examined, no acute overnight issues, pt back pain is better, she notes did not sleep well her bp was elevated overnight, amlodipine resumed sob somewhat better no other complaints still on oxygen. educated on need for outpatient PFT once stable May 04 patient seen examined, no acute overnight issues back pain better, still needs oxygen to maintain osat > 90 wheezing much improved, no other complaints reported - Constitutional Vitals: Vital Signs Temp Pulse Resp BP Pulse Ox 98 F 67 18 149/74 92 05/05/17 07:33 05/05/17 08:07 05/05/17 08:07 05/05/17 07:33 05/05/17 07:33 Period Temp Pulse Resp BP Sys/Fisher Pulse Ox Last 24 Hr 97.9 F-98.5 F 61-73 18-20 149-172/66-75 90-93 Intake and Output 05/04/17 05/05/17 05/05/17 21:59 05:59 13:59 Intake Total 600 / 600 1100 / 1100 500 / 500 Balance 600 / 600 1100 / 1100 500 / 500 Weight 168 lb Intake & Output: Intake & Output 05/04/17 05/05/17 05/05/17 21:59 05:59 13:59 Intake Total 600 / 600 1100 / 1100 500 / 500 Balance 600 / 600 1100 / 1100 500 / 500 Weight 168 lb Intake: Oral 600 / 600 1100 / 1100 500 / 500 Other: Meal Dinner snack Breakfast Percent of Meal Consumed 75% 100% 100% Feeding Ability Independent Independent # Voids 1 1 1 # Bowel Movements 1 Medical - PN: Obj Da - Labs CBC & Chem 7: 05/05/17 04:23 05/05/17 04:23 Labs: Abnormal Lab Results 05/05/17 05/04/17 05/03/17 04:23 04:30 04:55 RBC 3.91 L MCV 101.2 H 100.8 H MCH 34.2 H MPV 7.2 L Gran # Glucose 130 H 05/03/17 04:55 RBC 3.88 L MCV 101.6 H MCH 34.3 H MPV Gran # 8.2 H Glucose Meds: Medications Acetaminophen (Tylenol) 650 mg PO Q6HP PRN PRN Reason: PAIN/FEVER > 101 Last Admin: 05/05/17 07:36 Dose: 650 mg Albuterol/Ipratropium (Duoneb) 3 ml NEB Q4HRT [facility] Last Admin: 05/05/17 11:30 Dose: Not Given Amlodipine Besylate (Norvasc) 5 mg PO HS [facility] Last Admin: 05/04/17 21:26 Dose: 5 mg Aspirin (Aspirin) 81 mg PO QDAY [facility] Last Admin: 05/05/17 09:28 Dose: 81 mg Atenolol (Tenormin) 25 mg PO DAILY [facility] Last Admin: 05/05/17 09:28 Dose: 25 mg Atorvastatin Calcium (Lipitor) 80 mg PO DAILY [facility] Last Admin: 05/05/17 09:28 Dose: 80 mg Ceftriaxone Sodium (Rocephin) 1 gm IV DAILY [facility] Last Admin: 05/05/17 10:51 Dose: Not Given Famotidine (Pepcid) 20 mg PO BID [facility] Last Admin: 05/05/17 10:32 Dose: 20 mg Heparin Sodium (Porcine) (Heparin) 5,000 unit SQ Q12 [facility] Last Admin: 05/05/17 10:32 Dose: Not Given Hydromorphone HCl (Dilaudid) 0.5 mg IV Q2HP PRN PRN Reason: PAIN LEVEL > 6 Last Admin: 05/02/17 13:30 Dose: 0.5 mg Hydroxyzine HCl (Atarax) 25 mg PO TID-QID PRN PRN Reason: Allergic Symptoms Azithromycin 250 mg/ Dextrose 250 mls @ 250 mls/hr IV DAILY [facility] Stop: 05/06/17 09:59 Last Admin: 05/05/17 10:52 Dose: Not Given Lisinopril (Zestril) 20 mg PO BID [facility] Last Admin: 05/05/17 09:29 Dose: 20 mg Magnesium Hydroxide (Milk Of Magnesia) 30 ml PO DAILYP PRN PRN Reason: Constipation Methocarbamol (Robaxin) 750 mg PO Q6HP PRN PRN Reason: Muscle Spasm Last Admin: 05/03/17 21:01 Dose: 750 mg Naloxone HCl (Narcan) 0.1 mg IV Q2MIN PRN PRN Reason: Opiate Reversal Ondansetron HCl (Zofran) 4 mg IV Q6HP PRN PRN Reason: Nausea And Vomiting Oxycodone HCl (Roxicodone) 5 mg PO Q4HP PRN PRN Reason: PAIN LEVEL 3-6 Last Admin: 05/05/17 04:46 Dose: 5 mg Pantoprazole Sodium (Protonix) 40 mg PO ACB [facility] Last Admin: 05/05/17 07:36 Dose: 40 mg Potassium Chloride (Kdur) 10 meq PO [facility] Last Admin: 05/05/17 07:36 Dose: 10 meq [facility]) [facility] Last Admin: 05/05/17 07:36 Dose: 40 mg Sodium Chloride (Saline Flush) 10 ml IV Q8 [facility] Last Admin: 05/05/17 04:46 Dose: 10 ml Throat Lozenges (Cepacol) 1 lozenge PO PRN PRN PRN Reason: Sore Throat Last Admin: 05/05/17 06:51 Dose: 1 lozenge Torsemide (Demadex) 10 mg PO QDAY [facility] Last Admin: 05/05/17 09:29 Dose: 10 mg Trazodone HCl (Desyrel) 100 mg PO HSP PRN PRN Reason: Insomnia Last Admin: 05/04/17 21:25 Dose: 100 mg Medical - PN: A/P - Time Spent With Patient Total time spent is greater than 50% in coordination of care (as documented) at patient's floor/unit and/or counseling patient: Medical - PN: Qual - VTE Deep Vein Thrombosis/Pulmonary Embolism Present on Admission: No
--- NOTE | 2017-05-05 12:52 | Discharge Summary ---
Medical - DS: Prov Patient information: Note initiated : 05/05/17 at 12:47 pm Service Date, if different from initiated Date: [] Patient: Baylee Crowell 71 y/o F admitted on 05/02/17 for Rt Hip Pain/ Pnemonia. Chief Complaint: [] Date of admission: 05/02/17 12:32 Discharge date: 05/05/17 Primary care physician: Doron Shell Admitting clinician: Rozina Xavier Consults: 05/02/17 11:30 Consult to Physician [CONS] Stat Comment: Consulting Provider: Rozina Xavier Reason For Exam: Physician to Consult Discharging clinician: Rozina Xavier Medical - DS: Meds - Discharge Medications Prescriptions: predniSONE [Prednisone] 40 mg PO [facility] #8 tab Active and Home Medications: Home Medications HYDROcodone/ACETAMINOPHEN [Hydrocodon-Acetaminophn 10-325] 1 each PO QIDP [History Confirmed 05/02/17 Last Taken 05/02/17 04:00 10 MG. 1 TAB] aspirin 81 mg chewable tablet 81 mg PO QDAY 11/09/16 [History Confirmed Last Taken 05/01/17 21:00 81 MG.] atorvastatin 80 mg tablet 80 mg PO QDAY 11/09/16 [History Confirmed 05/02/17 Last Taken 05/01/17 21:00 80 MG.] hydroxyzine HCl 25 mg tablet 25 mg PO TID-QID PRN 11/09/16 [History Confirmed Last Taken 04/28/17 21:00 25 MG.] pantoprazole 40 mg tablet,delayed release 40 mg PO QDAY 11/09/16 [History Confirmed 05/02/17 Last Taken 04/29/17 07:00 40 MG.] potassium chloride ER 10 mEq tablet,extended release 10 meq PO QDAY 11/09/16 [ History Confirmed 05/02/17 Last Taken 05/01/17 21:00] torsemide 10 mg tablet 10 mg PO QDAY 11/09/16 [History Confirmed 05/02/17 Last Taken 05/01/17 21:00 10 MG.] zolpidem 10 mg tablet 5 - 10 mg PO HS 11/09/16 [History Confirmed 05/02/17 Last Taken 05/01/17 21:00 5 MG.] Albuterol Sulfate [Proair Hfa] 8.5 gm IH Q4HP PRN 05/02/17 [History Confirmed Last Taken 05/01/17 21:00 8.5 GM] Atenolol [Tenormin] 25 mg PO DAILY 05/02/17 [History Confirmed 05/02/17 Last Taken 05/01/17 21:00 25 MG.] Atorvastatin [Lipitor] 80 mg PO DAILY 05/02/17 [History Confirmed 05/02/17 Last Taken Unknown] Lisinopril [Zestril] 20 mg PO BID 05/02/17 [History Confirmed 05/02/17 Last Taken 05/01/17 21:00 20 MG.] amLODIPine [Norvasc] 5 mg PO HS 05/02/17 [History Confirmed 05/02/17 Last Taken 05/01/17 21:00] traZODone HCL [Trazodone HCl] 50 - 100 mg PO HSP PRN 05/02/17 [History Confirmed 05/02/17 Last Taken 05/01/17 21:00 2 TABS] Medical - DS: Hosp Hospital course: Ms. Crowell is a 71 year old Female with h/o sciatic back pain, presented to the ER with complaints of pain in the back radiating down the right side x 1 day The patient has chr sciatic pain, and this pain exacerbates intermittently. This time she had pain started a day before admission, which was severe, sharp, radiating down the right side up to mid thigh, the pt waited it out with the hope of seeing her chiropractor, but since the pain was unbearable she came to the ER. She had recently got a flu shot and has been feeling weak tired and fatigued over the last 4-5 days, she has cough, and had some greenish sputum today, she has had some nausea over the weekend, some dry heaving on the day of admission. In the ER the patient was noted to be hypoxic on presentation, wheezing bilaterally, her Chest x ray was interpreted as possible pna, and she had abnormal UA, She was admitted to the hospital for further management. Back pain: Sciatica, usually responds to steroids and Physical therapy, patient was on steroids for copd, but PT was also invovled with her care, at the time of discharge the patient was able to ambulate well without any issues COPD exacerbation.: Patient denies any history of COPD however, we'll had wheezing on exam, was treated with steroids as well as antibiotics. Patient responded to treatment very well, no wheezing at the time of discharge. We will complete the course of prednisone for total of 7 days. She has been advised to consider getting a pulmonary function test once her COPD flare up to settle down. Pneumonia : Community-acquired pneumonia, treat with IV Rocephin and IV azithromycin. Patient responded to treatment very well, was gradually weaned off oxygen. Able to tolerate by mouth, or discharge. He'll be discharged on oral third generation cephalosporin and Zithromax. Blood cultures are negative, sputum cultures were positive for Haemophilus influenzae urinary tract infection-patient had UTI, urine culture were positive for Escherichia coli,resistant to penicillins, ampicillin, sensitive to cephalosporins. Patient will be discharged on oral cephalosporins, which should cover her urinary tract infection. Patient has no symptoms suggestive of UTI. The rest of the stay in the hospital was uneventful, patient at the time of discharge was saturating well without oxygen supplement. Is able to tolerate by mouth diet very well, is ambulating freely without any support. She is willing to go home. Discharge diagnosis: Pneumonia, UTI, BAck pain/ Sciatica - Time Spent with Patient Total time spent providing and/or coordinating discharge services: Greater than 30 minutes Medical - DS: Exam - Constitutional Vitals: Vital Signs Temp Pulse Pulse Resp BP BP Pulse Ox 05/05/17 12:00 98.9 F 18 173/87 92 05/05/17 08:07 67 18 05/05/17 07:33 98 F 18 149/74 92 05/05/17 03:33 70 18 05/05/17 03:08 98.5 F 73 20 166/75 92 05/04/17 22:55 97.9 F 69 20 172/74 91 05/04/17 22:33 61 18 90 05/04/17 19:00 90 05/04/17 18:51 61 18 91 05/04/17 18:47 98.4 F 62 20 162/72 90 05/04/17 17:55 92 05/04/17 16:00 98.1 F 18 161/66 93 05/04/17 13:51 91 05/04/17 13:05 93 Intake and Output 05/04/17 05/05/1705/05/18 21:59 05:59 13:59 Intake Total 600 / 600 1100 / 1100 500 / 500 Balance 600 / 600 1100 / 1100 500 / 500 Intake: Oral 600 / 600 1100 / 1100 500 / 500 Other: Meal Dinner snack Breakfast Percent of Meal Consumed 75% 100% 100% Feeding Ability Independent Independent # Voids 1 1 1 # Bowel Movements 1 Weight 168 lb Additional comments: Constitutional; Afebrile, cooperative, alert, not in distress. Eyes- No icterus, , No periorbital swelling Ears- Ext ear normal, hearing normal to conversation. Neck- Midline trachea, supple Respiratory system: Air Entry equal on both sides, No crackles or wheezing, no rhonchi. CVS- Rate rhythm regular, S1,S2 heard, no gallop, no rub. Abdomen- Soft nontender abdomen, no organomegaly, no tenderness, no guarding or rigidity, ADMINISTRATIVE LIAISON- AOOx3, moving all extremities, no gross focal deficit noted. Medical - DS: Data Labs on day of discharge: Labs from last 24 hours 05/05/17 05/05/17 04:23 04:23 WBC 10.0 RBC 3.91 L Hgb 13.4 Hct 39.6 MCV 101.2 H MCH 34.2 H MCHC 33.8 RDW 12.0 Plt Count 221 MPV 7.2 L Gran % 61.3 Lymph % (Auto) 27.2 Elliott % (Auto) 9.3 Eos % (Auto) 2.1 Baso % (Auto) 0.1 Gran # 6.1 Lymph # (Auto) 2.7 Elliott # (Auto) 0.9 Eos # (Auto) 0.2 Baso # (Auto) 0 Sodium 140 Potassium 3.8 Chloride 100 Carbon Dioxide 26 Anion Gap 14.0 BUN 22 Creatinine 0.7 GFR Calculation 87 Glucose 98 Uric Acid 6.6 Calcium 9.3 Phosphorus 3.8 Magnesium 2.0 Total Bilirubin 0.3 Direct Bilirubin < 0.2 GGT 31 AST 20 ALT 24 Alkaline Phosphatase 52 Lactate Dehydrogenase 204 Total Protein 6.7 Albumin 3.5 Globulin 3.2 Albumin/Globulin Ratio 1.1 Triglycerides 107 Preliminary micro results at discharge 05/02/17 11:41 Blood Culture - Preliminary Blood 05/02/17 11:52 Blood Culture - Preliminary Blood Medical - DS: A/P - Patient/Caregiver Discharge Instructions Activity: increase activity as tolerated Diet: Regular Diet Additional Instructions: Call to make an appointment with [facility] to be fitted for a C-Pap. [phone] take antibiotics till gone. Take prednisone for another 4 days. Follow-up with your primary care physician in one week. Go to the emergency room if fever, shortness of breath, chest pain, any other acute concerning symptoms. - Follow up Plan Follow up with: Doron Shell MD [Primary Care Provider] - Disposition: Home, Self-Care Prognosis: Good Rehab Potential: Good I certify that the patient requires SNF services: No Overall status at discharge: patient is progressing back to baseline Medical - DS: Qual - VTE Deep Vein Thrombosis/Pulmonary Embolism Present on Admission: No
[2017-05-05] MEDS ORDERED: PNEUMOCOCCAL 23-VAL P-SAC VAC 0.5 ML VIAL IM ONE (12:55)
== END 2017-05-05 14:00 | disposition home or self-care (01) | DRG 190 ==
LOC: ED 09:10 → MEDSUR 12:30
PROVIDERS: ADMIT Internal Medicine; ATTEND Internal Medicine